=== PATIENT | male | born 1965 | race Caucasian/White ===

== ENCOUNTER 2020-11-13 12:01 | Emergency (ER) | payer MEDICAID ==
[~2020-11-13] VITALS: Ht 167.6 cm; Wt 65.8 kg
[2020-11-13 12:05] VITALS: BP 119/95
[2020-11-13] MEDS ORDERED: ONDA4TAB5 PO (13:39)
[2020-11-13] MEDS ORDERED: ALBU18HF2 INH (13:40)
[2020-11-13] MEDS ORDERED: AZIT500T PO (13:40)
[2020-11-13] MEDS ORDERED: DEXA4TAB PO (13:40)
--- NOTE | 2020-11-13 13:49 | NUR ---
Patient discharged to home in stable condition. Written and verbal after care instructions given. Patient verbalizes understanding of instruction.
== END 2020-11-13 13:49 | disposition home or self-care (01) ==
LOC: ER 12:14
DX: U07.1 COVID-19 (principal); J12.82 Pneumonia due to coronavirus disease 2019; Z88.1 Allergy status to other antibiotic agents; Z60.2 Problems related to living alone; Z79.899 Other long term (current) drug therapy
CPT/HCPCS: 71045-TC